=== PATIENT | female | born 1945 | race Caucasian/White ===

== ENCOUNTER → 2016-11-13 | Outpatient (CLI) | payer MEDICARE, BC ==
[~2016-11-13] MED LIST: ASPI-496 PO; ATOR40TA PO; CALC200T37 PO; CHOL10002 PO; CYAN1TAB29 PO; INSU100I13 SQ; LISI1TAB3 PO; MELA1TAB6 PO; METF10002 PO; MULT-516 PO; OMEG1CAP12 PO; PROP80TA PO; ZOLP-413 PO
[2016-11-13 10:20] LABS: HEMOGLOBIN 16.2 g/dL (11.7-16.4)
[2016-11-13 10:24] LABS: ASPARTATE AMINO TRANSFERASE 56 U/L (15-37); BLOOD UREA NITROGEN 11 mg/dL (7-18)
== END | disposition home or self-care (01) ==
LOC: STAR 09:19
PROVIDERS: ATTEND Surgery
DX: Z01.818 Encounter for other preprocedural examination (principal); K80.80 Other cholelithiasis without obstruction; I10 Essential (primary) hypertension; E11.9 Type 2 diabetes mellitus without complications; E66.9 Obesity, unspecified
CPT/HCPCS: 36415; 80053; 85025; 93005

== ENCOUNTER 2016-11-17 06:01 | Day surgery (SDC) | payer MEDICARE, BC ==
[2016-11-13 10:16] VITALS: BP 153/79
[~2016-11-17] VITALS: Ht 165.1 cm; Wt 81.0 kg
[2016-11-17] MEDS ORDERED: LACTATED RINGERS 1,000 ML IV SCH (06:39)
[2016-11-17] MEDS ORDERED: LIDOCAINE 1%, 2ML SQ PRN (07:00)
[2016-11-17] MEDS ORDERED: BUPIVACAINE/PF-EPI 0.25% 1:200K ONE (07:04)
[2016-11-17] MEDS ORDERED: FENTANYL PF 250 MCG/5ML ONE (07:48)
[2016-11-17] MEDS ORDERED: OXYcodone 5 MG/5 ML ORAL.SOL UDC PO PRN (08:30)
[2016-11-17] MEDS ORDERED: LABETALOL 5MG/ML, 20ML IV PRN (08:30)
[2016-11-17] MEDS ORDERED: HYDROmorphone 1 MG/ML, 1ML IV PRN (08:30)
[2016-11-17] MEDS ORDERED: ONDANSETRON 2MG/ML, 2ML IVPush PRN (08:30)
[2016-11-17] MEDS ORDERED: hydrALAzine 20 MG/ML, 1ML IV PRN (08:30)
[2016-11-17] MEDS ORDERED: ACETAMINOPHEN 650 MG/20.3 ML UDC ONE (09:16)
[2016-11-17] MEDS ORDERED: FENTANYL PF 100 MCG/2ML ONE (09:16)
[2016-11-17] MEDS ORDERED: OXYcodone 5 MG/5 ML ORAL.SOL UDC ONE (09:16)
[2016-11-17] MEDS: FENTANYL PF 100 MCG/2ML IV PRN ×6 (09:21→10:16)
[2016-11-17] MEDS ORDERED: ACETAMINOPHEN 650 MG/20.3 ML UDC PO PRN (09:30)
[2016-11-17] MEDS ORDERED: OXYcodone/APAP 5/325MG TABLET ONE (12:47)
[2016-11-17] MEDS ORDERED: OXYcodone/APAP 5/325MG TABLET PO PRN (13:00)
[2016-11-17] MEDS ORDERED: CEFAZOLIN 1,000 MG ONE (15:29)
[2016-11-17] MEDS ORDERED: NEOSTIGMINE 1 MG/ML, 10ML ONE (15:29)
[2016-11-17] MEDS ORDERED: ROCURONIUM 10 MG/ML ONE (15:29)
[2016-11-17] MEDS ORDERED: PROPOFOL 10 MG/ML, 20ML ONE (15:29)
[2016-11-17] MEDS ORDERED: SUCCINYLCHOLINE 20 MG/ML, 10ML ONE (15:29)
[2016-11-17] MEDS ORDERED: GLYCOPYRROLATE 0.2MG/1ML ONE (15:29)
[2016-11-17] MEDS ORDERED: ONDANSETRON 2MG/ML, 2ML ONE (15:29)
== END 2016-11-17 13:00 | disposition home or self-care (01) ==
LOC: OUT 06:01
PROVIDERS: ATTEND Surgery
DX: K80.10 Calculus of gallbladder with chronic cholecystitis without obstruction (principal); I10 Essential (primary) hypertension; E11.9 Type 2 diabetes mellitus without complications; E78.5 Hyperlipidemia, unspecified; G47.33 Obstructive sleep apnea (adult) (pediatric); Z90.710 Acquired absence of both cervix and uterus; E66.9 Obesity, unspecified; Z68.29 Body mass index [BMI] 29.0-29.9, adult; Z83.3 Family history of diabetes mellitus; Z80.52 Family history of malignant neoplasm of bladder; Z82.49 Family history of ischemic heart disease and other diseases of the circulatory system; Z72.89 Other problems related to lifestyle; Z87.891 Personal history of nicotine dependence; Z79.4 Long term (current) use of insulin
CPT/HCPCS: 47562; 82962; 88304; J0330; J0690; J2405; J2704; J2710; J3010; J3490